=== PATIENT | female | born 1990 | race American Indian/Alaskan Native ===

== ENCOUNTER 2018-12-25 10:03 | Emergency (ER) | payer SELFPAY ==
[2018-12-25 10:24] VITALS: BP 116/55
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
[2018-12-25] MEDS ORDERED: IBUPROFEN 600 MG TAB PO ONE ×2 (12:31→12:32)
== END 2018-12-25 12:38 | disposition home or self-care (01) ==
LOC: ED 10:03
DX: M25.562 Pain in left knee (principal); Z79.1 Long term (current) use of non-steroidal anti-inflammatories (NSAID); V89.2XXA Person injured in unspecified motor-vehicle accident, traffic, initial encounter; Y93.89 Activity, other specified; Y92.89 Other specified places as the place of occurrence of the external cause; Y99.8 Other external cause status